=== PATIENT | male | born 1955 | race Caucasian/White ===

== ENCOUNTER 2018-06-30 08:57 | Inpatient (IN) | payer OTHER ==
[~2018-06-30] VITALS: Ht 165.1 cm; Wt 87.5 kg
[2018-06-30 09:27] LABS: ABSOLUTE EOSINOPHILS 0.2 thou/uL (0.0-0.7); ABSOLUTE LYMPHOCYTES 1.5 thou/uL (0.8-5.3); ABSOLUTE MONOCYTES 0.7 thou/uL (0.0-1.2); ABSOLUTE NEUTROPHILS 6.2 thou/uL (1.6-8.1); BASOPHILS 0.5 %; HEMOGLOBIN 15.9 gm/dL (14.0-18.0); LYMPHOCYTES 17.7 %; MCH 29.6 pg (26.0-34.0); MCHC 33.9 g/dL (28.0-37.0); MCV 87.3 fL (80.0-100.0); MONOCYTES 8.6 %; MPV 10.2 fl. (7.2-11.1); NUCLEATED RBCS 0 /100WBC; PLATELET COUNT* 161 thou/uL (150-400); POLYS 71.2 %; RBC 5.38 mil/uL (4.50-6.00); RDW-CV 14.5 % (10.5-14.5); WBC 8.6 thou/uL (4.0-11.0)
[2018-06-30 09:34] LABS: POC CA IONIZED 4.5 mg/dL (4.5-5.3); POC CREATININE 0.7 mg/dL (0.6-1.3); POC POTASSIUM 3.9 mmol/L (3.5-4.9)
[2018-06-30 09:34] LABS: ANION GAP 11 mmol/L (7-16); BUN 14 mg/dL (7-18); CALCIUM 8.7 mg/dL (8.5-10.1); CHLORIDE 104 mmol/L (98-107); CO2 25 mmol/L (21-32); CREATININE 0.8 mg/dL (0.6-1.3); GLUCOSE 121 mg/dL (70-99); POTASSIUM 3.9 mmol/L (3.5-5.1); SODIUM 140 mmol/L (136-145)
[2018-06-30 09:43] VITALS: BP 141/86
[2018-06-30 09:46] LABS: ALKALINE PHOSPHATASE 74 U/L (46-116); SGOT 28 U/L (15-37); SGPT 42 U/L (30-65); TOTAL BILIRUBIN 0.5 mg/dL (<0.1-1.0); TOTAL PROTEIN 6.8 g/dL (6.4-8.2); TROPONIN-I LEVEL <0.06 ng/mL (<0.06)
--- NOTE | 2018-06-30 09:57 | NUR ---
SEE CODE STROKE PAPERWORK FOR INFORMATION.
--- NOTE | 2018-06-30 09:57 | NUR ---
CODE STROKE CANCELLED AT THIS TIME PER DR. MCKEON'S ORDERS.
[2018-06-30 10:13] LABS: APTT 29.6 Seconds (25.0-31.3); PROTIME 10.3 Seconds (9.20-11.50)
[2018-06-30] MEDS ORDERED: NORVASC5 MG PO (10:17)
[2018-06-30] MEDS ORDERED: VITAMIN D1000 UNI1 PO (10:17)
[2018-06-30] MEDS ORDERED: FLOVENT HFA 4444 MCG INH (10:17)
[2018-06-30] MEDS ORDERED: COZAAR 25 MG TA25 M2 PO (10:17)
[2018-06-30] MEDS ORDERED: LORATIDINE 10 M10 M1 PO (10:17)
[2018-06-30] MEDS ORDERED: NAPROSYN500 MG PO (10:17)
[2018-06-30] MEDS ORDERED: UNICOMPLEX M TA1 TA1 PO (10:18)
[2018-06-30] MEDS ORDERED: TESTOSTERO200 MG/1 M IM (10:18)
[2018-06-30] MEDS ORDERED: VENTOLIN HFA 1818 GM INH (10:18)
[2018-06-30 12:23] VITALS: BP 128/75
[2018-06-30 12:50] VITALS: BP 111/62
--- NOTE | 2018-06-30 14:36 | NUR ---
ASSUMED PT CARE 1240. PT FROM ER. AOX4, UP AD SERGEI. O2 SAT AT 90'S RA. TRACING SR ON STATISTICIAN THEORETICAL. PT DENIES ANY PAIN. VSS, PT ADMISSION ASSESSMENT DONE. SITUATED TO ROOM. NIH DONE. PT ON REG DIET. PT LUNG SOUND CLEAR. LAST BM TODAY. PT FOR MRI. PT REMINDED TO USE CALL LIGHT. HOURLY ROUNDING. WILL CONTINUE TO MONITOR.
--- NOTE | 2018-06-30 14:50 | EKG ---
[place] [address] ELECTROCARDIOGRAM REPORT Name: DONOVAN RODRÍGUEZ Room: [address] ADM IN M.R.#: [id number] Admission: 06/30/18 Attend Phys: Dorothy Alcala MD Discharge: Date of : 51 Report #: [id number] THIS REPORT FOR: //name// [facility] ED Test Date: 2018-06-30 Test Time: 09:56:47 Pat Name: DONOVAN RODRÍGUEZ Department: Room: [facility] Gender: M Planning Manager: Shahab GREY : 1955 Requested By: Nicho Davis Order Number: [id number] MD: Roland Cruz Measurements Intervals [place] Rate: 68 P: 26 [place]: 156 QRS: -18 QRSD: 108 T: 9 QT: 393 QTc: 418 Interpretive Statements Sinus rhythm Possible left atrial enlargement Borderline left axis deviation Nonspecific T abnormalities, lateral leads No previous ECG available for comparison Electronically Signed On 06-30-2018 14:50:36 CDT by Roland Cruz [email or web address] <ELECTRONICALLY SIGNED> By: Roland Cruz MD, [facility] 06/30/18 [id number] Roland Cruz MD, [facility] /EPI
[2018-06-30 16:48] VITALS: BP 131/92
[2018-06-30 16:51] VITALS: BP 122/60
[2018-06-30] MEDS ORDERED: FLONASE 0.05%50 MCG NASAL (17:33)
--- NOTE | 2018-06-30 18:30 | NUR ---
PT HAD HEAD CT, MRI TODAY. PT NIH SCORED O ON ADMISSION. PT HAS TINGLING SENSATION ON L ARMS. PT NPO LUNCH TOMORROW. REMINDED TO USE CALL LIGHT. . HOURLY ROUNDING. WILL CONTINUE TO MONITOR.
--- NOTE | 2018-06-30 18:46 | NUR ---
I HAVE REVIEWED AND AGREE WITH THE ASSESEMENT AND NOTES OF ARDHA Sawant RN ON 06/30/18
[2018-06-30 20:20] VITALS: BP 132/65
[2018-07-01 00:02] VITALS: BP 130/68
[2018-07-01 04:19] VITALS: BP 134/75
[2018-07-01 05:21] LABS: ANION GAP 8 mmol/L (7-16); BUN 15 mg/dL (7-18); CALCIUM 8.5 mg/dL (8.5-10.1); CHLORIDE 105 mmol/L (98-107); CHOLESTEROL 151 mg/dL (<200); CO2 27 mmol/L (21-32); CREATININE 0.8 mg/dL (0.6-1.3); GLUCOSE 121 mg/dL (70-99); HDL CHOLESTEROL 37 mg/dL (>40); LDL CHOLESTEROL 100 mg/dL (<100); MAGNESIUM 1.9 mg/dL (1.8-2.4); SODIUM 140 mmol/L (136-145); TC:HDL 4.1 Ratio (Not establshd); TRIGLYCERIDE 74 mg/dL (<150); VLDL 15 mg/dL (<40)
[2018-07-01 05:40] LABS: SERUM ASSESSMENT CLEAR
--- NOTE | 2018-07-01 05:49 | NUR ---
PT CARE ASSUMED AT 1930. SAT MAINTAINED IN UT FOR SLEEP APNEA. CALL LIGHT WITHIN REACH AND BED IN LOW POSITION. ALERT AND ORIENTED X4. DENIES PAIN AND SOB. HOURLY ROUNDING DONE FOR PT SAFETY.
[2018-07-01 11:10] LABS: GLYCOHEMOGLOBIN (HGB A1C) 5.9 % (4.8-5.6)
--- NOTE | 2018-07-01 11:33 | NUR ---
Pt is A&O. Resides at home with his . Active and independent, continues to work outside of the home. Pt has a cpap, no other DME. No hx of HH or SNF. Pt states that he is discharging to home today, no needs.
[2018-07-01 11:55] VITALS: BP 139/72
[2018-07-01] MEDS ORDERED: CELEBREX 200 M200 M1 PO (12:00)
[2018-07-01] MEDS ORDERED: ATORVASTATIN CA40 MG PO (12:00)
[2018-07-01] MEDS ORDERED: ASPIRIN EC81 M1 PO (12:00)
--- NOTE | 2018-07-01 12:24 | 2DMMODE ---
[place] [address] 2 D/M-MODE ECHOCARDIOGRAM Name: DONOVAN RODRÍGUEZ Room: [address] IN [facility]#: [id number] Admission: 06/30/18 Attend Phys: Dorothy Alcala MD Discharge: Date of : 51 Date of Service: 07/01/18 1224 Report #: [id number] THIS REPORT FOR: //name// ADDENDUM APPROVED REPORT Study performed: 07/01/2018 09:55:01 EXAM: Comprehensive 2D, Doppler, and color-flow Echocardiogram Patient Location: In-Patient Room #: [facility] Status: routine BSA: 1.94 HR: 69 bpm BP: 134/75 mmHg Rhythm: NSR Other Information Study Quality: Good Indications CVA/TIA Echo Enhancing Agent Indication: Rule out Shunt Agent(s) / Amount(s) Used: Agitated Saline 10 cc 2D Dimensions IVSd: 13.26 (7-11mm) LVOT Diam: 22.26 (18-24mm) LVDd: 49.80 mm PWd: 11.90 (7-11mm) Ascending Ao: 33.68 (22-36mm) LVDs: 30.34 (25-40mm) Aortic Root: 33.19 mm Volumes Left Atrial Volume (Systole) LA ESV Index: 27.30 mL/m2 Aortic Valve AoV Peak Dewayne.: 1.18 m/s AO Peak Gr.: 5.58 mmHg LVOT Max P.78 mmHg AO Mean Gr.: 3.45 mmHg LVOT Mean P.03 mmHg LVOT Max V: 1.09 m/s AO V2 VTI: 24.41 cm LVOT Mean V: 0.64 m/s AMY (VTI): 3.83 cm2 LVOT V1 VTI: 24.00 [place] [address] 2 D/M-MODE ECHOCARDIOGRAM Name: DONOVAN RODRÍGUEZ Room: [address] IN .R.#: [id number] Admission: 06/30/18 Attend Phys: Dorothy Alcala MD Discharge: Date of : 51 Date of Service: 07/01/18 1224 Report #: [id number] Mitral Valve E/A Ratio: 0.94 MV Decel. Time: 165.76 ms MV E Max Dewayne.: 0.71 m/s MV PHT: 48.07 ms MVA (PHT): 4.58 cm2 TDI E/Lateral E': 7.89 E/Medial E': 8.88 Medial E' Dewayne.: 0.08 m/s Lateral E' Dewayne.: 0.09 m/s Pulmonary Valve PV Peak Dewayne.: 1.22 m/s PV Peak Gr.: 5.92 mmHg Tricuspid Valve RAP Estimate: 5.00 mmHg TR Peak Gr.: 19.79 mmHg RVSP: 24.00 mmHg PA Pressure: 24.00 mmHg Left Ventricle The left ventricle is normal size. There is normal LV segmental wall motion. There is normal left ventricular wall thickness. Left ventricular systolic function is normal. The left ventricular ejection fraction is within the normal range. LVEF is 60%. Grade I - abnormal relaxation pattern. Right Ventricle The right ventricle is normal size. The right ventricular systolic function is normal. Atria The left atrium size is normal. Interatrial septum is intact without evidence of ASD or PFO. The right atrium size is normal. Aortic Valve Mild aortic valve sclerosis. No aortic regurgitation is present. There is no aortic valvular stenosis. Mitral Valve The mitral valve is normal in structure. Trace mitral regurgitation. No evidence of mitral valve stenosis. Tricuspid Valve The tricuspid valve is normal in structure. Trace tricuspid regurgitation. [place] [address] 2 D/M-MODE ECHOCARDIOGRAM Name: DONOVAN RODRÍGUEZ Room: [address] IN [facility]#: [id number] Admission: 06/30/18 Attend Phys: Dorothy Alcala MD Discharge: Date of : 51 Date of Service: 07/01/18 1224 Report #: [id number] Pulmonic Valve The pulmonary valve is normal in structure. Trace pulmonic regurgitation. Great Vessels The aortic root is normal in size. IVC is normal in size and collapses >50% with inspiration. Pericardium There is no pericardial effusion. <Conclusion> The left ventricle is normal size. There is normal left ventricular wall thickness. Left ventricular systolic function is normal. The left ventricular ejection fraction is within the normal range. LVEF is 60%. Grade I - abnormal relaxation pattern. The right ventricle is normal size. The left atrium size is normal. Mild aortic valve sclerosis. No aortic regurgitation is present. There is no aortic valvular stenosis. The mitral valve is normal in structure. The tricuspid valve is normal in structure. IVC is normal in size and collapses >50% with inspiration. There is no pericardial effusion. There is normal LV segmental wall motion. Interatrial septum is intact without evidence of ASD or PFO. <ELECTRONICALLY SIGNED> By: Dl Alex MD, FACC 07/01/18 1224 1224 1224 Dl Alex MD, FACC /INF
[2018-07-01 13:49] VITALS: BP 139/72
--- NOTE | 2018-07-01 15:47 | NUR ---
PT ORDERS RECEIVED AND ACKNOWLEDGED. PT UP AD SERGEI IN [facility]. PT INDICATES NO NEED FOR ACUTE PT SERVICES AT THIS TIME. WILL DISCHARGE PT ORDERS PER PT REQUEST.
--- NOTE | 2018-07-02 13:41 | NUR ---
RECEIVED ORDERS FOR OT EVAL ON 06/30/18 AT 1735. PT. DISCHARGED PRIOR TO OT EVALUATION.
--- NOTE | 2018-07-03 12:44 | CON ---
[address] [address] CONSULTATION Name: DONOVAN RODRÍGUEZ Room: [address] IN .R.#: [id number] Admission: 06/30/18 Attend Phys: Dorothy Alcala MD Discharge: 07/01/18 Date of : 51 Report #: [id number] THIS REPORT FOR: //name// CC: Devante Alcala HISTORY OF PRESENT ILLNESS: The patient is a 62-year-old male who was taking out the trash yesterday when he noticed that his left foot would not turn properly. He walked inside almost having to drag his foot and he went to use his cell phone with his left hand the phone felt very heavy. The symptoms were short lived, lasting only several minutes. In addition to this, he also noticed wavy vision. The patient denies having a headache. He denies having any significant history of headache. This morning, the patient is completely back to normal. The patient does not take an aspirin a day. He has gained 20 pounds. Apparently, his cholesterol was elevated on his last doctor's visit. The patient also smokes 2 or 3 cigars a week and has gained 20 pounds by going to [employer] and buying ice cream. PAST MEDICAL HISTORY: Hypertension, hyperlipidemia, arthritis, environmental allergies. PAST SURGICAL HISTORY: Negative. MEDICATIONS AT HOME: Amlodipine 5 mg daily, losartan 50 mg daily, vitamin D 1000 units b.i.d., naproxen 500 mg b.i.d., loratadine 10 mg daily, fluticasone inhaler b.i.d., albuterol p.r.n., testosterone 200 mg IM weekly, multivitamin daily. ALLERGIES: None. VITAL SIGNS: Temperature is 36.5, pulse rate 68, respiratory rate 18, blood pressure 134/75, blood pressure on admission 141/86, oxygen saturation 95% on 2 liters. LABORATORY DATA: Hematology: White blood cell count 8.6, hemoglobin 15.9, hematocrit 47, MCV 87.3, platelet count 161,000. INR 1. Chemistry: Sodium 140, potassium 4, chloride 105, carbon dioxide 27, BUN 15, creatinine 0.8, glucose 121. Liver functions normal. Cholesterol 151, LDL cholesterol 100, HDL cholesterol 37. IMAGING: MRI head negative. CT angiogram unremarkable. CT head unremarkable. NEUROLOGIC: Cranial nerves 2-12 are grossly intact. Motor exam demonstrates symmetrical strength in all 4 extremities with tone and bulk normal. Reflexes are symmetrical throughout. Plantar responses are flexor. Coordination reveals intact [id number]. [place] [address] CONSULTATION Name: DONOVAN RODRÍGUEZ Room: [address] IN M..#: [id number] Admission: 06/30/18 Attend Phys: Dorothy Alcala MD Discharge: 07/01/18 Date of : 51 Report #: [id number] IMPRESSION: This patient may have had a transient ischemic attack. He has risk factors for stroke, which include cigar use, hypertension, history of hyperlipidemia and weight gain. The echocardiogram is pending. The remainder of the workup is unremarkable. Once the results of the echo are available, the patient should be able to go home. I would recommend aspirin 325 mg daily. I see he has been placed on atorvastatin, but he may be able to reduce this dose to 10 mg as his lipid profile is not that remarkable and all of these medications have potential side effects. I discussed weight loss with the patient. He seemed uncertain as to whether or not he would be able to stop eating ice cream at [employer], but I asked him to give this more thought as to its potential consequences. I thank you for your kind referral of the patient. <ELECTRONICALLY SIGNED> By: Geonveva Arias DO 07/03/18 1244 0954 [id number] Arias DO /nt
--- NOTE | 2018-07-04 16:31 | CON ---
[address] [address] CONSULTATION Name: DONOVAN RODRÍGUEZ Room: [address] IN M.R.#: [id number] Admission: 06/30/18 Attend Phys: Dorothy Alcala MD Discharge: 07/01/18 Date of : 51 Report #: [id number] THIS REPORT FOR: //name// CC: Devante Alcala DATE OF SERVICE: 06/30/2018 HISTORY OF PRESENT ILLNESS: This is a 62-year-old male patient who was evaluated by me for an episode of weakness and numbness on the left side. His left upper extremity, left lower extremity and left side of the face was involved. He had some visual deficit, but it is not certain what it was. He denies any history of migraine in the past. It lasted about 3 minutes. He never had this kind of episode before. REVIEW OF SYSTEMS: Indicate that this patient is otherwise healthy. He does have some hypertension. He had skin cancer in the past. He had history of obstructive sleep apnea and low testosterone. When seen, the patient was not complaining of any more visual, ENT, cardiac, respiratory, GI, , musculoskeletal, constitutional, dermatological, hematological, psychiatric, throat, allergic symptoms associated with present symptomatology. PAST MEDICAL HISTORY: Negative for any TIA or stroke. FAMILY HISTORY: Negative for early age stroke. SOCIAL HISTORY: He smokes cigars. PHYSICAL EXAMINATION: The patient's examination indicate the patient is alert, responsive, able to follow simple and complex command. His speech, concentration, fund of knowledge and memory is at his baseline. Cranial nerve examination 2-12 indicates it was mostly unremarkable. He has symmetrical strength, sensation, reflexes and tone in all 4 extremities. There is no meningeal sign. There is no carotid bruit. Pulses are palpable and he has no edema, cyanosis or jaundice. Cardiac examination appear unremarkable. No respiratory difficulty or rhonchi was noticed. Blood pressure is 122/60, respiration is 20, pulse is 74 and temperature is 98. IMPRESSION: The patient's clinical presentation is consistent with transient ischemic attack. His white count is normal and his lipid profile is pending. His imaging study; both, brain MRI and CT angiogram was unremarkable. RECOMMENDATIONS: 1. He must stop smoking. 2. Aspirin daily. 3. Await LDL [place] [address] CONSULTATION Name: DONOVAN RODRÍGUEZ Room: [address] IN .R.#: [id number] Admission: 06/30/18 Attend Phys: Dorothy Alcala MD Discharge: 07/01/18 Date of : 51 Report #: [id number] 4. We will await echo and see if anything further needs to be done. Dr. Arias will follow up this patient with you from tomorrow. <ELECTRONICALLY SIGNED> By: Denilson Moreno MD 07/04/18 1631 [id number] anabelle Hennessy
== END 2018-07-01 14:20 | disposition home or self-care (01) | DRG 69 ==
LOC: M.ERS 08:57 → M.2W 11:21 → M.TBA-ER 11:21 → M.2W 12:50
PROVIDERS: Family Medicine; ADMIT Family Medicine
DX: G45.9 Transient cerebral ischemic attack, unspecified (principal); E78.5 Hyperlipidemia, unspecified; I10 Essential (primary) hypertension; M19.90 Unspecified osteoarthritis, unspecified site; G47.33 Obstructive sleep apnea (adult) (pediatric); J45.20 Mild intermittent asthma, uncomplicated; Z79.899 Other long term (current) drug therapy

== ENCOUNTER 2018-09-05 11:18 | Emergency (ER) | payer OTHER ==
[~2018-09-05] VITALS: Ht 165.1 cm; Wt 72.6 kg
[~2018-09-05 11:18] MED LIST: ASPIRIN EC81 M1 PO; ATORVASTATIN CA40 MG PO; CELEBREX 200 M200 M1 PO; COZAAR 25 MG TA25 M2 PO; FLONASE 0.05%50 MCG NASAL; FLOVENT HFA 4444 MCG INH; LORATIDINE 10 M10 M1 PO; NAPROSYN500 MG PO; NORVASC5 MG PO; TESTOSTERO200 MG/1 M IM; UNICOMPLEX M TA1 TA1 PO; VENTOLIN HFA 1818 GM INH; VITAMIN D1000 UNI1 PO
[2018-09-05 12:09] LABS: ABSOLUTE BASOPHILS 0.1 thou/uL (0.0-0.2); ABSOLUTE EOSINOPHILS 0.2 thou/uL (0.0-0.7); ABSOLUTE LYMPHOCYTES 1.6 thou/uL (0.8-5.3); ABSOLUTE MONOCYTES 1.2 thou/uL (0.0-1.2); BASOPHILS 0.4 %; EOSINOPHILS 1.4 %; HEMATOCRIT 46.2 % (42.0-52.0); HEMOGLOBIN 15.6 gm/dL (14.0-18.0); LYMPHOCYTES 13.3 %; MCH 29.5 pg (26.0-34.0); MCHC 33.8 g/dL (28.0-37.0); MCV 87.2 fL (80.0-100.0); MONOCYTES 10.3 %; MPV 9.5 fl. (7.2-11.1); NUCLEATED RBCS 0 /100WBC; PLATELET COUNT* 168 thou/uL (150-400); POLYS 74.6 %; RBC 5.29 mil/uL (4.50-6.00); RDW-CV 14.4 % (10.5-14.5); WBC 12.1 thou/uL (4.0-11.0)
[2018-09-05 12:18] LABS: CALCIUM 9.1 mg/dL (8.5-10.1); CREATININE 0.8 mg/dL (0.6-1.3); POTASSIUM 4.3 mmol/L (3.5-5.1)
[2018-09-05 12:22] LABS: ALBUMIN 3.8 g/dL (3.4-5.0); TOTAL BILIRUBIN 0.5 mg/dL (<0.1-1.0)
[2018-09-05 15:22] LABS: URINE BILIRUBIN NEGATIVE (Negative); URINE BLOOD NEGATIVE (Negative); URINE CLARITY CLEAR; URINE COLOR YELLOW; URINE GLUCOSE-RANDOM NEGATIVE (Negative); URINE KETONES NEGATIVE (Negative); URINE LEUKOCYTES-REFLEX NEGATIVE (Negative); URINE NITRITE-REFLEX NEGATIVE (Negative); URINE PROTEIN NEGATIVE (Negative); URINE SPECIFIC GRAVITY <= 1.005 (1.005-1.030); URINE UROBILINOGEN 0.2 E.U./dl (0.2-1.0)
[2018-09-05 16:00] VITALS: BP 140/98
== END 2018-09-05 16:03 | disposition home or self-care (01) ==
LOC: M.ERS 11:18
PROVIDERS: Nurse Practitioner Family
DX: S39.011A Strain of muscle, fascia and tendon of abdomen, initial encounter (principal); I10 Essential (primary) hypertension; J45.909 Unspecified asthma, uncomplicated; G47.33 Obstructive sleep apnea (adult) (pediatric); N43.2 Other hydrocele; X58.XXXA Exposure to other specified factors, initial encounter; Y93.I9 Activity, other involving external motion; Y92.89 Other specified places as the place of occurrence of the external cause; Y99.8 Other external cause status

== ENCOUNTER → 2019-09-29 | Outpatient (CLI) | payer MEDICARE, OTHER | LOC: M.LAB 15:35 | PROVIDERS: ATTEND Orthopaedic Surgery | DX: Z01.812 Encounter for preprocedural laboratory examination (principal); Z11.59 Encounter for screening for other viral diseases ==